=== PATIENT | male | born 1990 | race Two or more races ===

== ENCOUNTER 2024-10-06 19:17 | Emergency (ER) | payer BC, SELFPAY ==
[2024-10-06 19:18] VITALS: BMI 27.3
[2024-10-06 19:22] VITALS: BP 133/82; PULSE 88; RESP 19; TEMP 36.7; O2SAT 96
[2024-10-06] MEDS: DiphenhydrAMINE 25 MG CAPSULE 50 MG PO (20:15)
[2024-10-06] MEDS: predniSONE 20 MG TABLET 60 MG PO (20:15)
[2024-10-06] MEDS: FAMOTIDINE 20 MG TABLET 40 MG PO (20:16)
--- NOTE | 2024-10-06 20:24 | EDNOTE_ITS ---
ED Skin Abcess FB-RME/HPI General Chief complaint: Skin/Abscess/Foreign Body Stated complaint: RASH BODY Time Seen by Provider: 10/06/24 19:58 Source: patient Arrival date/time: 10/06/24 19:17 This is a 34-year-old male who presents to the emergency department with complaints of itchiness hives through bilateral arms and chest. Unknown allergy substance. Patient states he has never had an allergy reaction in the past. He does report he used a new shampoo which could have caused his symptoms. Denies any shortness of breath, chest pain. Related Data Previous Rx's ?Medication ?Instructions ?Recorded diphenhydramine HCl 25 mg capsule 25 mg PO TID PRN all ergy symptoms 10/06/24 (Benadryl) #30 caps prednisone 50 mg tablet 50 mg PO QDAY 4 days #4 tabs 10/06/24 Allergies Allergy/AdvReac Type Severity Reaction Status Date / Time NKA Allergy Unknown Uncoded 03/17/03 01:33 Review of Systems Review of Systems Systems Reviewed: All systems reviewed, normal except as documented Narrative Review of Systems: Gen: No fever, no chills, no weight loss EYES: No discharge, no visual changes, no pain HEENT: No ear pain, no congestion, no sore throat PULM: No shortness of breath, no cough, no congestion CV: No chest pain, no dyspnea on exertion, no palpitations GI: No nausea, no vomiting, no diarrhea, no pain, no constipation : No frequency, no urgency, no dysuria Musc/skel: No joint pain, no back pain Skin:+ Rash Psyc: No hallucinations, no depression Heme/Lymph: No easy bleeding or bruising tendencies Neuro: No weakness, no headache ED Exam Narrative Physical exam: General: Sittiing in Exam table in no acute distress, answering questions appropriately HENT: normocephalic, atraumatic, EOMI, PERRLA, moist mucous membranes Chest: chest wall is nontender Cardiac: regular rate and rhythm, normal S1 and S2, no murmurs, rubs, or gallops, capillary refill ?2 seconds Pulmonary: clear to auscultation bilaterally, no wheezing, crackles, or rhonchi Abdominal: active bowel sounds, soft, nontender, nondistended Neuro: A&OX3, CN II-XII intact, sensation grossly intact bilaterally in UE and LE. Skin: Hives and rash through chest and bilateral arms. Ext: no lower extremity edema Course Quality Measures none Orders Category Date Time Status DiphenhydrAMINE [Benadryl] Med 10/06/24 20:01 Discontinued 50 mg PO X1 ONE Famotidine [Pepcid] Med 10/06/24 20:01 Discontinued 40 mg PO X1 ONE predniSONE Med 10/06/24 20:01 Discontinued 60 mg PO X1 ONE Vital Signs Vital signs: Vital Signs Temperature 98.1 F 10/06/24 19:22 Pulse Rate 88 10/06/24 19:22 Respiratory Rate 19 10/06/24 19:22 Blood Pressure 133/82 H 10/06/24 19:22 Pulse Oximetry (%) 96 10/06/24 19:22 Oxygen Delivery Method Room Air 10/06/24 19:22 Skin / Abscess / Foreign Body MDM Narrative MDM Narrative:: Patient evaluated for allergic reaction. No acute respiratory distress no hypoxemia vital signs stable. No oral airway involvement. Patient was given a cocktail of allergic medication. His symptoms improved. Advised to follow-up with his PCP for further evaluation or allergic panel. Patient data External records reviewed:: [facility] previous records Clinical information provided by:: patient Social determinants that could affect healthcare access:: none Patient has the following chronic illnesses:: No How is presenting disease/condition affected by chronic disease/condition?: no chronic disease Evaluation data The following diagnostics were reviewed and interpreted by me:: other (specify) Lab and/or radiology exams considered but not ordered:: No Interpretation Summary: No Medications / Prescriptions Medications or Prescriptions considered but not ordered:: No Medication administrations:: Medication Administration History Discontinued Medications Diphenhydramine HCl (Diphenhydramine 25 Mg Capsule) 50 mg PO X1 ONE Stop: 10/06/24 20:02 Last Admin: 10/06/24 20:15 Dose: 50 mg Documented By: BOB Famotidine (Famotidine 20 Mg Tablet) 40 mg PO X1 ONE Stop: 10/06/24 20:02 Last Admin: 10/06/24 20:16 Dose: 40 mg Documented By: BOB Comments: MED UNABLE TO SCAN Prednisone (Prednisone 20 Mg Tablet) 60 mg PO X1 ONE Stop: 10/06/24 20:02 Last Admin: 10/06/24 20:15 Dose: 60 mg Documented By: BOB All medications administered and effective Consultations Consultation(s) initiated? (list below): No Diagnosis Skin/Abscess Differential Diagnosis: abscess of skin or subcutaneous tissue, viral exanthem, allergic reaction to drug, insect bites, impetigo and contact dermatitis Most likely diagnosis given after review of the tests above:: Allergic reaction hives Admission Indicated Admission indicated?: not indicated Admission Request Was there a request for admission?: No Disposition Plan Disposition Plan: Discharge Discharge Attestation Discharge Attestation: The patient and all family members were given an opportunity to ask questions and understood the discharge instructions. Discharge instructions specifically effects, indications for sooner follow up or return to the emergency department, and the expected course of current diagnosis. Patient condition: Stable Discharge Plan Plan Patient Disposition: HOME (Self Care) Patient condition on transfer: Stable Prescriptions/Referrals Prescriptions/Med Rec: New diphenhydramine HCl [Benadryl] 25 mg capsule 25 mg PO TID PRN (Reason: allergy symptoms) Qty: 30 0RF prednisone 50 mg tablet 50 mg PO QDAY 4 Days Qty: 4 0RF Problem List Clinical Impression: Urticaria, Allergic reaction Patient/Caregiver Discharge Instructions Discharge Activity: activity as tolerated Education Materials: ED Hives (Adult) Additional Instructions: You were evaluated today for allergic reaction. - You were prescribed antihistamines, example Benadryl and steroids that will help reduce your symptoms. 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 Print Language: French Stand Alone Forms: [employer] Award Info., Work/School Release, Patient Portal Info Letter ARIN/JAYA Supervising Physician ARIN/JAYA Supervising Physician: Ashley
== END 2024-10-06 21:54 | disposition home or self-care (01) ==
LOC: SERX 20:48
PROVIDERS: Emergency Provider Emergency Medicine
DX: L50.0 Allergic urticaria (principal)
CPT/HCPCS: 99282; J7512; A9270